=== PATIENT | male | born 1965 | race Caucasian/White ===

== ENCOUNTER 2016-12-11 13:50 | Emergency (ER) | payer OTHER ==
[~2016-12-11 13:50] MED LIST: ADIPEX-P37.5 M1 PO; ASPIRIN EC81 MG PO; FLOMAX 0.4 MG0.4 MG PO; LISINOPRIL-HCT1 EAC2 PO; METOPROLOL SUCC50 MG PO; NEURONTIN 400400 MG PO; NORCO 7.5-3251 EACH PO
[2016-12-11 14:46] LABS: HEMOGLOBIN 9.5 gm/dl (14.0-17.5); RED BLOOD COUNT 3.11 M/UL (4.20-5.50); WHITE BLOOD COUNT 8.6 K/UL (4.5-11.0)
[2016-12-11 15:11] LABS: BUN/CREATININE RATIO 25 (0-10)
== END 2016-12-11 19:23 ==
LOC: ER1 13:50
PROVIDERS: Emergency Medicine
DX: J18.9 Pneumonia, unspecified organism (principal); D64.9 Anemia, unspecified; C90.00 Multiple myeloma not having achieved remission; J44.9 Chronic obstructive pulmonary disease, unspecified; Z87.891 Personal history of nicotine dependence
CPT/HCPCS: 36415; 36600; 70450; 71010; 80053; 81001; 82803; 83605; 83880; 84484; 85025; 85379; 87040; 87086; 93005; 94640; 94664; 96374; 96375; 99285; J2543; J3370; J7040; J7050